=== PATIENT | male | born 1965 | race Caucasian/White ===

== ENCOUNTER 2016-10-26 14:31 | Observation (INO) | payer BC ==
[~2016-10-26] VITALS: Ht 180.3 cm; Wt 113.2 kg
--- NOTE | ~2016-10-26 | DS ---
PATIENT:ELISEO MERINO KAT :65 MEDICAL RECORD: [id number] DISCHARGE SUMMARY ADMISSION DATE: 10/26/16 DISCHARGE DATE: 10/27/16 DISCHARGE DIAGNOSES: 1. Chest pain. 2. Coronary artery disease. 3. Previous percutaneous transluminal coronary angioplasty stent. 4. Hypertension. 5. Hyperlipidemia. HISTORY: Mr. Merino presents with chest pain; however, cardiac catheterization revealed no significant new disease. He was discharged home to continue his current medications, follow up with [facility] in 1 month. TRANSINT:[id number] Voice Confirmation ID: [id number] DOCUMENT ID: [id number] LEONOR WELLS MD CC: [id number] DICTATION DATE: 10/27/16 173 GEOPHYSICAL PROSPECTOR: 10/28/16 1022 DIS IN 10/27/16 [address] [place] [address]
--- NOTE | ~2016-10-26 | OP ---
PATIENT NAME: ELISEO PENA MEDICAL RECORD: [id number] :65 LOCATION:D.M2 D.2120 ADMISSION DATE:10/26/16 SURGEON: LEONOR WELLS MD DATE OF OPERATION: 10/27/2016 PROCEDURES: 1. Left heart catheterization. 2. Selective coronary angiography. 3. Left ventriculogram. INDICATION: Angina and coronary artery disease. PROCEDURE IN DETAIL: After informed consent was obtained and after a detailed explanation of risks, benefits, as well as alternative therapies, the patient elected to proceed with angiogram and heart catheterization. The right radial area was prepped and draped in normal sterile fashion. The right radial artery was cannulated via modified Seldinger technique with placement of 5-Latvian sheath. All catheters exchanged through this sheath. FINDINGS: The left ventriculogram was performed in standard 30-degree JUAREZ view, reveals good cardiac wall motion throughout all segments. Overall ejection fraction estimated at 60%. SELECTIVE CORONARY ANGIOGRAPHY: 1. Left main showed no significant angiographic disease. 2. Left anterior descending has previously placed stents in the LAD and the LAD diagonal. These are widely patent with no significant restenosis. No disease elsewise. 3. Left circumflex has mild irregularities, but no flow-limiting stenosis. 4. Right coronary has mild irregularities, but no flow-limiting stenosis. OVERALL IMPRESSION: No significant restenosis of the previously placed stents. No disease elsewise. Continue medical management of the coronary artery disease and cardiac risk factors. TRANSINT:[id number] Voice Confirmation ID: [id number] DOCUMENT ID: [id number] LEONOR WELLS MD CC: [id number] DICTATION DATE: 10/27/161730 STONE MASON: 10/28/16 0037 DIS IN 10/27/16 [facility] [address] [place] [address]
--- NOTE | ~2016-10-26 | HEMODYNAMI ---
PATIENT:ELISEO PENA KAT MEDICAL RECORD: [id number] : 65 [facility] D[facility]2120 [id number] ADMISSION DATE: 10/26/16 Generatedon:10/27/201617:32 Patient name: ELISEO PENA Patient #: [id number] SSN: : 1965 Date of study: 10/27/2016 Page: Of Hemodynamic Procedure Report Patient Data Patient Demographics Procedure consent was obtained First Name: ELISEO Gender: Male Last Name: JEAN : 1965 [facility] Initial: KAT Age: 51 year(s) Patient #: [id number] Race: Additional ID: [id number] Contact details Address: [address] [address] State: [place] City: [place] Zip code: [address] Past Medical History Allergies Allergen Reaction Date Comments Reported Other allergy 08/30/2015 ibuprofen, Macrolide antibiotics, Zithromax Other allergy 10/27/2016 IBUPROFEN, AZITHROMYCIN, MACROBID Admission Admission Data Admission Date: 10/26/2016 Admission Time: 17:28 Room #: D.2120 Lab Results Lab Result Date: 10/27/2016 Lab Result Time: 0:00 Biochemistry Name Units Result Min Max BUN mg/dl 17 --(---*)-- 7 18 Creatinine mg/dl 1 --(--*-)-- 0.6 1.3 CBC Name Units Result Min Max Hemoglobin g/dl 14.8 --(-*--)-- 13.5 17.5 Procedure Procedure Types Cath Procedure Diagnostic Procedure LHC LHC w/Coronaries Miscellaneous Procedures Moderate Sedation up to 15 minutes Procedure Description Procedure Date Procedure Date: 10/27/2016 Procedure Start Time: 17:21 Procedure End Time: 17:31 Procedure Staff Name Function Mingo Day MD Performing Physician Annamaria Shah RT Scrub Roberto Carlos Briseno RN Nurse Aiden Akers RT Monitor Procedure Data Cath Procedure Fluoroscopy Diagnostic fluoroscopy Total fluoroscopy Time: 1.7 time: 1.7 min min Diagnostic fluoroscopy Total fluoroscopy dose: 949 dose: 949 mGy mGy Contrast Material Contrast Material Type Amount (ml) Isovue 300 68 Entry Location Entry Primary Successful Side Size Upsize Upsize Entry Closure [place] ccessful Closure Location (Fr) 1 (Fr) 2 (Fr) Remarks Device Remarks Radial Right 6 Fr Mechanical artery Short Compression Estimated blood loss: 5 ml Diagnostic catheters Device Type Used For End Catheter Placement Diagnostic Terumo 5Fr Procedure [place] 110cm catheter Procedure Medications Medication Administration Route Dosage Oxygen NC 2 l/min Heparin Flush Bag added to field 2 bags (1000units/500ml NS) 0.9% NaCl I.V. 100 ml/hr Radial Cocktail added to field 1 syringe (Verapomil 2mg/Nitro 400mcg/Heparin 1500units) Plavix P.O. 75 mg Fentanyl I.V. 50 mcg Versed I.V. 1 mg Fentanyl I.V. 50 mcg Versed I.V. 1 mg Fentanyl I.V. 50 mcg Fentanyl I.V. 50 mcg Radial Cocktail I.A. 1 syringe (Verapomil 2mg/Nitro 400mcg/Heparin 1500units) Hemodynamics Rest HGB: 14.8 (g/dl) Heart Rate: 77 (bpm) Pressure Samples Time Site Value (mmHg) Purpose Heart Use Rate(bpm) 17:24 LV 125/25,36 Snapshot 77 Snapshots Pre Cath Intra NCS Post Cath Vital Signs Time Heart Resp SPO2 NIBP (mmHg) Rhythm Pain Sedation Rate (ipm) (%) Status Level (bpm) 17:06:54 75 17 95 169/90(124) NSR 0 (11) 10(A) , No pain 17:11:10 78 16 96 161/93(121) NSR 0 (11) 10(A) , No pain 17:15:26 72 17 98 153/83(120) NSR 0 (11) 10(A) , No pain 17:19:40 67 17 95 142/88(119) NSR 0 (11) 10(A) , No pain 17:23:54 110 23 97 138/78(102) NSR 0 (11) 9(A) , No pain 17:28:06 74 17 93 158/88(119) NSR 0 (11) 9(A) , No pain 17:30:25 69 16 96 152/87(109) NSR 0 (11) 9(A) , No pain Medications Time Medication Route Dose Verified Delivered Reason Notes Effectiveness by by 17:09:14 Oxygen NC 2 l/min Roberto Carlos Azevedo Per Finn Briseno RN physician RN 17:09:22 Heparin Flush added 2 bags Roberto Carlos Azevedo used for Bag to Finn Briseno RN procedure (1000units/500ml field RN NS) 17:09:33 0.9% NaCl I.V. 100 Roberto Carlos Azevedo Per ml/hr Finn Briseno RN physician RN 17:09:42 Radial Cocktail added 1 Roberto Carlos Azevedo used for (Verapomil to syringe Finn Briseno RN procedure 2mg/Nitro field RN 400mcg/Heparin 1500units) 17:12:37 Plavix P.O. 75 mg Roberto Carlos Azevedo for Finn Briseno RN antiplatelet RN therapy 17:14:58 Fentanyl I.V. 50 mcg Roberto Carlos Azevedo for sedation Finn Briseno RN RN 17:15:04 Versed I.V. 1 mg Roberto Carlos Azevedo for sedation Finn Briseno RN RN 17:19:04 Fentanyl I.V. 50 mcg Roberto Carlos Azevedo for sedation Finn Briseno RN RN 17:19:09 Versed I.V. 1 mg Roberto Carlos Azevedo for sedation Finn Briseno RN RN 17:21:50 Fentanyl I.V. 50 mcg Roberto Carlos Azevedo for sedation Finn Briseno RN RN 17:22:55 Fentanyl I.V. 50 mcg Roberto Carlos Azevedo for sedation Finn Briseno RN RN 17:23:38 Radial Cocktail I.A. 1 Roberto Carlos Aguila for (Verapomil syringe Finn Day MD vasodilation 2mg/Nitro RN 400mcg/Heparin 1500units) Procedure Log Time Note 16:50:44 Roberto Carlos Briseno RN sent for patient. Start room use. 17:04:12 Informed consent obtained and on chart 17:04:16 Diagnostic Cath Status : Elective 17:05:00 Time tracking: Regular hours 17:05:05 Plan of Care:Hemodynamics will remain stable., Cardiac rhythm will remain stable., Comfort level will be maintained., Respiratory function will remain adequate., Patient/ family verbilizes understanding of procedure., Procedure tolerated without complication., Recovers from procedure without complications.. 17:05:13 Patient received from PCU to [facility] Alert and oriented. Tansferred to table in Supine position. 17:05:15 Warm blankets applied, and nilton hugger turned on for patient comfort. 17:05:15 Correct patient and procedure confirmed by team. 17:05:16 ECG and BP/O2 sat monitors applied to patient. 17:05:17 Vital chart was started 17:05:18 Baseline sample Acquired. 17:05:23 Rhythm: sinus rhythm 17:05:25 Full Disclosure recording started 17:08:43 H&P Date Dictated: 10/26/2016 Within 30 days and on chart., ER History on chart.. 17:09:03 Pre-procedure instructions explained to patient. 17:09:04 Pre-op teaching completed and patient verbalized understanding. 17:09:07 Family in patients room. 17:09:14 Oxygen 2 l/min NC was administered by Roberto Carlos Briseno RN; Per physician; 17:09:14 Patient NPO since Breakfast. 17:09:22 Heparin Flush Bag (1000units/500ml NS) 2 bags added to field was administered by Roberto Carlos Briseno RN; used for procedure; 17:09:33 0.9% NaCl 100 ml/hr I.V. was administered by Roberto Carlos Briseno RN; Per physician; 17:09:42 Radial Cocktail (Verapomil 2mg/Nitro 400mcg/Heparin 1500units) 1 syringe added to field was administered by Roberto Carlos Briseno RN; used for procedure; 17:09:49 Patient allergic to Other allergyIBUPROFEN, AZITHROMYCIN, MACROBID 17:09:57 Is the patient allergic to Iodine/contrast media? No. 17:10:08 Is patient on blood thinner?Yes 17:10:20 Patient diabetic? No. 17:10:23 ----Pre-sedation anethsthesia assessment.---- 17:10:33 Previous problem with sedation/anesthesia? No ? 17:10:35 Snore? Yes 17:10:37 Sleep apnea? Yes 17:10:39 Deviated septum? No 17:10:41 Opens mouth fully? Yes 17:10:42 Sticks out tongue? Yes 17:10:46 Airway obstruction? No ? 17:10:50 Dentures? No ? 17:10:53 Pre procedure: right dorsailis pedis pulse 1+ Palpable, but thready & weak; easily obliterated 17:10:58 Patient pain scale 0/10 ?. 17:11:06 IV patent on arrival in right hand with 0.9% NaCl at KVO. 17:11:19 IV right hand D/C'd due to need to relocate for procedure.. 17:11:35 IV started by Roberto Carlos Briseno RN inleft forearm with a 20 gauge IV catheter with 0.9% NaCl at KVO. 17:12:37 Plavix 75 mg P.O. was administered by Roberto Carlos Briseno RN; for antiplatelet therapy; 17:12:57 Lab Result : BUN 17 mg/dl 17:12:57 Lab Result : Hemoglobin 14.8 g/dl 17:12:57 Lab Result : Creatinine 1 mg/dl 17:13:01 Lab results completed and on chart. 17:13:09 Right Radial & Right Groin area was prepped with chlora-prep and draped in sterile fashion 17:13:11 Alarms reviewed by R. N. 17:13:12 Sharps counted by scrub and verified by R.N. 17:13:18 Use device set Radial Dx 17:13:19 Acist Syringe opened to sterile field. 17:13:20 Medline Cath Pack opened to sterile field. 17:13:20 Bag Decanter opened to sterile field. 17:13:21 Terumo 6Fr Slender Glidesheath opened to sterile field. 17:13:21 St Jerod 260cm J .035 wire opened to sterile field. 17:13:22 Acist Hand Control opened to sterile field. 17:13:22 Acist Manifold opened to sterile field. 17:13:23 Tegaderm 4 x 4 opened to sterile field. 17:13:23 MBrace Wrist Support opened to sterile field. 17:14:33 Physician arrived 17:14:34 --------ALL STOP TIME OUT------ 17:14:35 Final Timeout: patient, procedure, and site verified with staff and physician. All members of the team are in agreement. 17:14:38 Right Radial & Right Groin site verified by team. 17:14:41 Physical assessment completed. ASA score P 2 - A patient with mild systemic disease as per Mingo Day MD. 17:14:46 Sedation plan: IV Moderate Sedation Versed, Fentanyl 17:14:58 Fentanyl 50 mcg I.V. was administered by Roberto Carlos Briseno RN; for sedation; 17:15:04 Versed 1 mg I.V. was administered by Roberto Carlos Briseno RN; for sedation; 17:19:04 Fentanyl 50 mcg I.V. was administered by Roberto Carlos Briseno RN; for sedation; 17:19:09 Versed 1 mg I.V. was administered by Roberto Carlos Briseno RN; for sedation; 17:19:09 Zero performed for pressure channel P1 17:21:10 Procedure started. 17:21:15 Local anesthetic to right radial artery with Lidocaine 2% by Mingo Day MD.INITIAL ACCESS ONLY 17:21:50 Fentanyl 50 mcg I.V. was administered by Roberto Carlos Briseno RN; for sedation; 17:22:05 A 6 Fr Short sheath was inserted into the Right Radial artery 17:22:55 Fentanyl 50 mcg I.V. was administered by Roberto Carlos Briseno RN; for sedation; 17:23:05 A Diagnostic Terumo 5Fr [place] 110cm catheter was advanced over the wire and used for Procedure. 17:23:38 Radial Cocktail (Verapomil 2mg/Nitro 400mcg/Heparin 1500units) 1 syringe I.A. was administered by Mingo Day MD; for vasodilation; 17:24:10 LV hemodynamics recorded. 17:24:11 LV gram done using JUAREZ 17:24:16 EF : 60 % 17:24:49 RCA angiography performed. 17:25:34 LCA angiography performed. 17:27:34 Catheter removed. 17:27:47 Terumo TR Band Large opened to sterile field. 17:28:01 Sheath removed intact; hemostasis achieved with Mechanical Compression to the Right Radial artery. 17:28:05 Procedure ended.(Physican Out) 17:28:32 Procedure type changed to Cath procedure, Diagnostic procedure, LHC, LHC w/Coronaries, Miscellaneous Procedures, Moderate Sedation up to 15 minutes 17:29:19 Fluoroscopy time 01.70 minutes. 17:29:26 Fluoroscopy dose: 949 mGy 17:: Flurop Dose total: 949 17:29:32 Contrast amount:Isovue 300 68ml. 17:30:53 TR band inflated with 10cc of air. 17:30:55 Insertion/operative site no bleeding no hematoma. 17:31:00 Post right radial artery:stable 17:31:05 Post-procedure physical assessment completed. ASA score P 2 - A patient with mild systemic disease as per Mingo Day MD. 17:31:10 Post procedure rhythm: sinus rhythm 17:31:12 Estimated blood loss: 5 ml 17:31:14 Post procedure instruction explained to patient.Patient verbalizes understanding. 17:31:14 Patient needs reinforcement of post procedure teaching. 17:31:15 Procedure and supply charges have been captured, reviewed, submitted and are correct. 17:31:16 Vital chart was stopped 17:31:17 See physician's report for complete and final results. 17:31:19 Report given to [facility]. 17:31:24 Patient transfered to [facility] with Bed. 17:31:42 Procedure ended. 17:31:42 Full Disclosure recording stopped 17:31:47 End room use (Document Last) Device Usage Item Name Manufacture Quantity Catalog Hospital Part Current Minimal Lot# / Number Charge Number Stock Stock Serial# Code Acist Acist 1 73562 716953 775525 165151 20 Syringe [employer] Inc Medline Cardinal 1 [id number] 468681 32066 777645 5 Cath Pack Health Bag Microtek 1 2001S 903083 21984 741314 5 Decanter [employer] Inc. Terumo 6Fr Terumo 1 [id number] 495407 540482 043952 [address] St Jerod 1 [id number] 743420 478529 902995 30 260cm J .035 wire Acist Hand Acist 1 54346 943196 955271 368257 5 Control Medical Systems Inc Acist Acist 1 34982 762851 630530 935514 5 Manifold Medical [employer] Inc Tegaderm 4 3M 1 1626W 853798 379878 106942 5 x 4 MBrace Advanced 1 140-0250-00 182539 99135 578993 5 Wrist Vascular Support Dynamics Diagnostic Terumo 1 13-5350 931737 563113 742662 5 Terumo 5Fr [place] 110cm catheter Terumo TR Terumo 1 [id number] 944256 087536 621330 40 Band Large Signature Audit [place] Stage Time Signature Unsigned Intra-Procedure 10/27/2016 Aiden Akers 5:32:04 PM RT(R) (CV) Signatures Monitor : Aiden Akers RT Signature : Date : Time : [facility] [address] [place] [address]
[~2016-10-26 14:31] MED LIST: BAYER CHEWABLE81 MG PO; HYZAAR 100-12.51 TAB PO; METOPROLOL TART50 MG PO; PLAVIX75 MG PO
[2016-10-26 15:12] LABS: BASOPHILS 0.4 % (0-2); EOSINOPHILS 2.5 % (0-7); HEMATOCRIT 42.8 % (42.0-54.0); HEMOGLOBIN 14.8 g/dL (13.5-17.5); IMMATURE GRANULOCYTES 0.1 % (0-5); LYMPHOCYTES 33.9 % (15-50); MCH 31.2 pg (26.0-34.0); MCHC 34.6 g/dL (31.0-37.0); MCV 90.1 fL (80.0-100.0); MEAN PLATELET VOLUME 10.1 fL (7.4-10.4); NEUTROPHILS 55.1 % (40-80); PLATELET COUNT 209 10x3/uL (130-400); RBC 4.75 10x6/uL (4.20-6.10); RDW 12.8 % (11.5-14.5); WBC 6.7 10x3/uL (4.8-10.8)
[2016-10-26 15:30] LABS: ALBUMIN 3.9 g/dL (3.4-5.0); ALKALINE PHOSPHATASE 81 U/L (46-116); ALT (SGPT) 65 U/L (10-68); BILIRUBIN - TOTAL 0.29 mg/dL (0.2-1.3); CALC OSMOLALITY 282 mosm/kg (275-300); CALCIUM 9.3 mg/dL (8.5-10.1); CARBON DIOXIDE 30.4 mmol/L (21.0-32.0); CHLORIDE - SERUM 102 mmol/L (98-107); GLUCOSE 146 mg/dL (74-106); POTASSIUM - SERUM 3.9 mmol/L (3.5-5.1); SODIUM 139 mmol/L (136-145); UREA NITROGEN 17 mg/dL (7-18); eGFR NON AFRICAN AMERICAN 84 mL/min (90-120)
[2016-10-26 15:42] LABS: CHOL - HDL RATIO 5.3 ratio (2.3-4.9); CHOLESTEROL, TOTAL 196 mg/dL (0-200); CKMB 0.3 U/L (0.0-3.6); CREATINE KINASE 107 UL (21-232); HDL CHOLESTEROL 37 mg/dL (32-96); LDL CHOLESTEROL 130 mg/dL (0-100); LDL-HDL RATIO 3.5 ratio (1.5-3.5); TRIGLYCERIDE 146 mg/dL (30-200); TROPONIN-I 0.026 ng/mL (0.000-0.060)
[2016-10-26 18:56] LABS: APPEARANCE CLEAR (CLEAR); COLOR YELLOW (YELLOW); SPECIFIC GRAVITY 1.025 (1.005-1.020)
[2016-10-26 18:57] LABS: BILIRUBIN NEGATIVE (NEGATIVE); GLUCOSE NEGATIVE (NEGATIVE); KETONE NEGATIVE (NEGATIVE); LEUKOCYTE ESTERASE NEGATIVE (NEGATIVE); NITRITE NEGATIVE (NEGATIVE); PROTEIN NEGATIVE (NEGATIVE); UROBILINOGEN NORMAL (NORMAL)
[2016-10-26] MEDS ORDERED: PRAVASTATIN SOD10 MG PO (19:36)
[2016-10-26] MEDS ORDERED: REQUIP0.5 MG PO (19:36)
--- NOTE | 2016-10-26 19:45 | NUR ---
PT ARRIVES TO UNIT VIA WC. DENIES ANY C/O PAIN UPON ARRIVAL. PT REQUEST TO TAKE SHOWER BEFORE WEARING TELE OR CONTINUING WITH ASSESSMENT. IV TO RIGHT HAND COVERED AND PT ASSISTED TO SHOWER.
[2016-10-26 20:00] VITALS: BP 144/61
--- NOTE | 2016-10-26 20:15 | NUR ---
PT OUT OF SHOWER AND TELE PLACED ON. NSR ON MONITOR. RESP EVEN AND UNLABORED. CONT TO DENY ANY C/O PAIN. VSS, AFEBRILE. RIGHT HAND IV FLUSHED AND NS STARTED @ 100 CC/HR, SITE APPEARS WNL. NO NEEDS VOICED. WILL CONT TO MONITOR.
--- NOTE | 2016-10-26 22:00 | NUR ---
RESTING COMFORTABLY WITHOUT C/O OR DISTRESS NOTED. NO NEEDS VOICED. WILL MONITOR.
[2016-10-26 22:39] VITALS: Ht 180.3 cm; Wt 113.2 kg
[2016-10-27] VITALS: BP 144/71
[2016-10-27 05:24] VITALS: BP 145/65
[2016-10-27 08:00] VITALS: BP 154/82
[2016-10-27 08:32] LABS: BASOPHILS 0.3 % (0-2); EOSINOPHILS 3.1 % (0-7); HEMATOCRIT 42.2 % (42.0-54.0); HEMOGLOBIN 14.1 g/dL (13.5-17.5); IMMATURE GRANULOCYTES 0.3 % (0-5); MCH 30.7 pg (26.0-34.0); MCHC 33.4 g/dL (31.0-37.0); MCV 91.9 fL (80.0-100.0); MEAN PLATELET VOLUME 10.7 fL (7.4-10.4); MONOCYTES 8.1 % (2-11); NEUTROPHILS 43.2 % (40-80); PLATELET COUNT 209 10x3/uL (130-400); RBC 4.59 10x6/uL (4.20-6.10); RDW 13.1 % (11.5-14.5); WBC 7.1 10x3/uL (4.8-10.8)
[2016-10-27 08:38] LABS: CALC OSMOLALITY 280 mosm/kg (275-300); CALCIUM 8.4 mg/dL (8.5-10.1); CHLORIDE - SERUM 102 mmol/L (98-107); GLUCOSE 121 mg/dL (74-106); POTASSIUM - SERUM 3.8 mmol/L (3.5-5.1); SODIUM 139 mmol/L (136-145); UREA NITROGEN 18 mg/dL (7-18); eGFR NON AFRICAN AMERICAN 84 mL/min (90-120)
--- NOTE | 2016-10-27 09:56 | NUR ---
TELEMETRY SR. CONSENTS SIGNED FOR [facility]. WILL CONT. PLAN OF CARE.
[2016-10-27 11:52] VITALS: BP 152/74
[2016-10-27 14:44] VITALS: BP 111/63
--- NOTE | 2016-10-27 16:51 | NUR ---
LEAVING FOR LIGHT FIXTURE SERVICER BY Yash/Kirsten
--- NOTE | 2016-10-27 17:46 | NUR ---
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 VS WNL. RIGHT WRIST STABLE WITHOUT BLEEDING OR HEMATOMA NOTED. WILL MONITOR.
--- NOTE | 2016-10-27 19:13 | NUR ---
INITIAL ROUNDS COMPLETRED. PT DENIES ANY DISCOMFORT. 1/2 OF AIR REMOVED FORM TR BAND WITH BLEEDING NOTED. AIR REPLACED TO TR BAND. WILL RECHECK IN 30 MINUTES. WILL CONTINUE TO MONITOR.
--- NOTE | 2016-10-27 20:19 | NUR ---
7CC REMOVED AT 1940 HRS. NO BLEEDING NOTED. ASSESSMENT COMPLETED AT THAT TIM. IV TO R HAND SL. LUNGS CTA. REMAINDER OF AIR REMOVED FROM TR BAND AT 2020 HRS. NO BLEEDING NOTED. AT BEDSIDE.
[2016-10-27 20:25] VITALS: BP 144/69
--- NOTE | 2016-10-27 21:06 | NUR ---
NO BLEEDING X 30 MINUTES POST TR-BAND REMOVAL. PALPABLE R RADILA PULSE. R HAND NAILBEDS PINK WITH BRISK CAP REFILL. IV TO R HAND AND LFA DC'D WITH CATHETER INTACT. DC INSTRUCTIONS GIVEN AND EXPLAINED TO PT. INFORMED TO CALL AO GO TO ER TUAN FOR ANY BLEDING THAT DOES NOT STOP AFTER 5 MINUTES OF PRESSURE HELD, SWELLING OR IF R HAND BECOMES COLD OR NUMB. PT AND RETURN UNFERSTANDING. TO POV VIA W/C.
== END 2016-10-27 21:00 | disposition home or self-care (01) ==
LOC: D.ER 14:31 → D.M2 17:28 → OBSVTIME 17:28 → D.M2 17:28
PROVIDERS: Emergency Medicine; ADMIT Internal Medicine Interventional Cardiology
DX: R07.9 Chest pain, unspecified (principal); I25.10 Atherosclerotic heart disease of native coronary artery without angina pectoris; Z95.5 Presence of coronary angioplasty implant and graft; I10 Essential (primary) hypertension; E78.5 Hyperlipidemia, unspecified

== ENCOUNTER → 2017-11-14 08:53 | Outpatient (CLI) | payer BC ==
[~2017-11-14] VITALS: Ht 180.3 cm; Wt 115.9 kg
--- NOTE | ~2017-11-14 | HEMODYNAMI ---
PATIENT:ELISEO PENA KAT MEDICAL RECORD: [id number] : 65 LOCATION:[facility] ADMISSION DATE: 11/14/17 Generatedon:11/14/201712:29 Patient name: ELISEO PENA Patient #: [id number] SSN: : 1965 Date of study: 11/14/2017 Page: Of Hemodynamic Procedure Report Patient Data Patient Demographics Procedure consent was obtained First Name: ELISEO Gender: Male Last Name: JEAN : 1965 [facility] Initial: KAT Age: 52 year(s) Patient #: [id number] Race: Additional ID: [id number] Contact details Address: [address] [address] State: [place] City: [place] Zip code: [address] Past Medical History Allergies Allergen Reaction Date Comments Reported Other allergy 08/30/2015 ibuprofen, Macrolide antibiotics, Zithromax Other allergy 10/27/2016 IBUPROFEN, AZITHROMYCIN, MACROBID Admission Admission Data Admission Date: 11/14/2017 Admission Time: 8:53 Procedure Procedure Types Cath Procedure Diagnostic Procedure [facility] w/Coronaries PCI Procedure Coronary Stent Coronary Stent Initial Procedure Description Procedure Date Procedure Date: 11/14/2017 Procedure Start Time: 12:06 Procedure End Time: 12:23 Procedure Staff Name Function Mingo Day MD Performing Physician Annamaria Shah RT Monitor Christy Gonzales RN Nurse Juan Parker RT Scrub Procedure Data Cath Procedure Fluoroscopy Diagnostic fluoroscopy Total fluoroscopy Time: 6.2 time: 6.2 min min Diagnostic fluoroscopy Total fluoroscopy dose: dose: 1438 mGy 1438 mGy Contrast Material Contrast Material Type Amount (ml) Isovue 300 104 Entry Location Entry Primary Successful Side Size Upsize Upsize Entry Closure [place] ccessful Closure Location (Fr) 1 (Fr) 2 (Fr) Remarks Device Remarks Radial Right 6 Fr Mechanical artery Short Compression Estimated blood loss: 10 ml Diagnostic catheters Device Type Used For End Catheter Placement DIAGNOSTIC Bushnell 110cm 5 Procedure Fr catheter ([id number]) Procedure Complications No complications Procedure Medications Medication Administration Route Dosage Oxygen NC 2 l/min Lidocaine 2% added to field 20 Heparin Flush Bag added to field 2 bags (1000units/500ml NS) 0.9% NaCl I.V. 100 ml/hr Radial Cocktail I.A. 1 syringe (Verapomil 2mg/Nitro 400mcg/Heparin 1500units) Versed I.V. 1 mg Fentanyl I.V. 50 mcg Versed I.V. 1 mg Fentanyl I.V. 50 mcg Heparin Bolus I.V. 4000 units Versed I.V. 0.5 mg Fentanyl I.V. 25 mcg Hemodynamics Rest Heart Rate: 68 (bpm) Pressure Samples Time Site Value (mmHg) Purpose Heart Use Rate(bpm) 12:09 LV 60/-23,13 Snapshot 77 12:09 LV 99/-48,-41 Snapshot 70 Snapshots Pre Cath Intra NCS Post Cath Vital Signs Time Heart Resp SPO2 NIBP (mmHg) Rhythm Pain Sedation Rate (ipm) (%) Status Level (bpm) 11:49:07 64 12 97 140/79(95) NSR 0 (11) 10(A) , No pain 11:53:21 64 19 95 125/74(97) NSR 0 (11) 10(A) , No pain 11:58:34 58 23 96 120/59(90) NSR 0 (11) 10(A) , No pain 12:03:21 61 15 94 120/97(115) NSR 0 (11) 10(A) , No pain 12:07:27 58 16 94 131/86(113) NSR 0 (11) 10(A) , No pain 12:11:29 65 17 95 106/93(103) NSR 0 (11) 10(A) , No pain 12:15:36 62 52 93 108/69(102) NSR 0 (11) 10(A) , No pain 12:20:38 69 13 94 145/70(117) NSR 0 (11) 10(A) , No pain Medications Time Medication Route Dose Verified Delivered Reason Note s Effectiveness by by 11:47:34 Oxygen NC 2 l/min Mingo Harrison used for Barb Gonzales RN procedure 11:47:41 Lidocaine 2% added 20ml Mingo Marieie used for to vial Barb Gonzales RN procedure field 11:47:48 Heparin Flush added 2 bags Mingo Harrison used for Bag to Barb Gonzales RN procedure (1000units/500ml field NS) 11:48:02 0.9% NaCl I.V. 100 Mingotrisha Marieie Per physician ml/hr Barb Gonzales RN 12:05:41 Versed I.V. 1 mg Mingo Marieie for sedation Barb Gonzales RN 12:05:47 Fentanyl I.V. 50 mcg Mingo Harrison for sedation Barb Gonzales RN 12:09:29 Radial Cocktail I.A. 1 Mingo Aguila for (Verapomil syringe Barb Day MD vasodilation 2mg/Nitro 400mcg/Heparin 1500units) 12:09:34 Versed I.V. 1 mg Mingo Marieie for sedation Barb Gonzales RN 12:09:41 Fentanyl I.V. 50 mcg Mingo Harrison for sedation Barb Gonzales RN 12:14:12 Heparin Bolus I.V. 4000 Mingo Harrison for veri fied units Barb Gonzales RN anticoagulation with dr day 12:16:34 Versed I.V. 0.5 mg Mingo Marieie for sedation Barb Gonzales RN 12:16:39 Fentanyl I.V. 25 mcg Mingo Harrison for sedation Barb Gonzales RN Procedure Log Time Note 11:30:23 Juan Parker RT(R) sent for patient. Start room use. 11:39:07 Diagnostic Cath Status : Elective 11:40:40 Time tracking: Regular hours (M-F 7:00 - 5:00) 11:40:45 Plan of Care:Hemodynamics will remain stable., Cardiac rhythm will remain stable., Comfort level will be maintained., Respiratory function will remain adequate., Patient/ family verbilizes understanding of procedure., Procedure tolerated without complication., Recovers from procedure without complications.. 11:40:54 Patient received from Pre/Post Procedure Room to CCL 2 Alert and oriented. Tansferred to table in Supine position. 11:40:57 Warm blankets applied, and nilton hugger turned on for patient comfort. 11:41:09 Correct patient and procedure confirmed by team. 11:41:14 Signed procedure consent form obtained from patient. 11:47:34 Oxygen 2 l/min NC was administered by Christy Gonzales RN; used for procedure; 11:47:41 Lidocaine 2% 20ml vial added to field was administered by Christy Gonzales RN; used for procedure; 11:47:48 Heparin Flush Bag (1000units/500ml NS) 2 bags added to field was administered by Christy Gonzales RN; used for procedure; 11:48:02 0.9% NaCl 100 ml/hr I.V. was administered by Christy Gonzales RN; Per physician; 11:48:06 Vital chart was started 11:50:04 ECG and BP/O2 sat monitors applied to patient. 11:50:06 Baseline sample Acquired. 11:50:11 Rhythm: sinus rhythm 11:50:12 Full Disclosure recording started 11:50:23 H&P Date Dictated: 11/08/2017 Within 30 days and on chart., H&P Addendum completed by physician on day of procedure. (MUST COMPLETE FOR ALL OUTPATIENTS). 11:50:25 Pre-procedure instructions explained to patient. 11:50:26 Family in waiting room. 11:50:29 Patient NPO since Midnight. 11:50:37 Is the patient allergic to Iodine/contrast media? No. 11:50:39 Was the patient premedicated? Yes 11:50:40 Is patient on blood thinner?Yes 11:50:44 ACC The patient was administered the following blood thiners within the last 24 hours: ACCAspirin, ACCPlavix 11:50:46 Patient diabetic? No. 11:50:50 Snore? Yes 11:50:51 Sleep apnea? Yes 11:50:52 Deviated septum? No 11:50:59 Patient pain scale 0/10 ?. 11:51:07 IV patent on arrival in left forearm with 0.9% NaCl at O. 11:51:11 Lab results completed and on chart. 11:51:15 Right Radial & Right Groin area was prepped with chlora-prep and draped in sterile fashion 11:51:16 Alarms reviewed by R. N. 11:51:16 Sharps counted by scrub and verified by R.N. 11:51:17 Physician paged 12:04:23 Use device set Radial Dx or PCI 12:04:24 ACIST Syringe (22089) opened to sterile field. 12:04:25 Medline Cath Pack ([id number]) opened to sterile field. 12:04:25 Bag Decanter () opened to sterile field. 12:04:26 DIAGNOSTIC WIRE .035 260cm J wire (044731) opened to sterile field. 12:04:26 ACIST Hand Control (78917) opened to sterile field. 12:04:27 ACIST Manifold (57258) opened to sterile field. 12:04:27 Tegaderm 4 x 4 (1626W) opened to sterile field. 12:04:29 MBrace Wrist Support ([id number]) opened to sterile field. 12:04:30 NEEDLE Cook 21G 4cm Radial (Q88699) opened to sterile field. 12:04:35 SHEATH 6Fr Prelude Radial ([id number]) opened to sterile field. 12:05:16 Physician arrived 12:05:17 --------ALL STOP TIME OUT------ 12:05:17 Final Timeout: patient, procedure, and site verified with staff and physician. All members of the team are in agreement. 12:05:19 Right Radial & Right Groin site verified by team. 12:05:24 Physical assessment completed. ASA score P 2 - A patient with mild systemic disease as per Mingo Day MD. 12:05:28 Sedation plan: IV Moderate Sedation Medication:Versed, Fentanyl 12:05:41 Versed 1 mg I.V. was administered by Christy Gonzales RN; for sedation; 12:05:47 Fentanyl 50 mcg I.V. was administered by Christy Gonzales RN; for sedation; 12:06:46 Procedure started. 12:06:57 Local anesthetic to right radial artery with Lidocaine 2% by Mingo Day MD.INITIAL ACCESS ONLY 12:07:08 A 6 Fr Short sheath was inserted into the Right Radial artery 12:07:21 Zero performed for pressure channel P1 12:08:00 A DIAGNOSTIC Bushnell 110cm 5 Fr catheter (403078) was advanced over the wire and used for Procedure. 12:08:24 LV angiography performed. 12:09:08 LV gram done using JUAREZ 12:09:29 Radial Cocktail (Verapomil 2mg/Nitro 400mcg/Heparin 1500units) 1 syringe I.A. was administered by Mingo Day MD; for vasodilation; 12:09:34 Versed 1 mg I.V. was administered by Buffie Gonzales RN; for sedation; 12:09:41 Fentanyl 50 mcg I.V. was administered by Christy Gonzales RN; for sedation; 12:10:13 EF : 60 % 12:10:44 RCA angiography performed. 12:12:12 LCA angiography performed. 12:14:02 CHOICE PT Extra Support 182cm wire ([id number]) opened to sterile field. 12:14:02 INFLATOR Merit BasixCompak (LJ6634) opened to sterile field. 12:14:03 GUIDE 6FR XBLAD 3.5 catheter ([id number]) opened to sterile field. 12:14:08 Catheter removed. 12:14:09 Proceeding to intervention. 12:14:12 Heparin Bolus 4000 units I.V. was administered by Christy Gonzales RN; for anticoagulation; verified with dr day 12:14:25 6 Fr XBLAD 3.5 guide catheter was inserted over the wire 12:14:36 choice ex support wire advanced. 12:15:45 Guide catheter removed. 12:16:05 GUIDE 6FR XBLAD 4.0 catheter ([id number]) opened to sterile field. 12:16:34 Versed 0.5 mg I.V. was administered by Christy Gonzales RN; for sedation; 12:16:38 6 Fr XBLAD 4 guide catheter was inserted over the wire 12:16:39 Fentanyl 25 mcg I.V. was administered by Christy Gonzales RN; for sedation; 12:17:58 Choice pt ex wire advanced. 12:20:29 Place stent Inflation Number: 1 A INTEGRITY RX 3.5 x 12 stent ([id number]) was prepped and advanced across the Mid CX. The stent was deployed at 13 [place] for 0:06 (min:sec). 12:21:23 Sheath removed intact; hemostasis achieved with Mechanical Compression to the Right Radial artery. 12:21:30 Procedure ended.(Physican Out) 12:22:04 Fluoroscopy time 06.20 minutes. 12::08 Fluoroscopy dose: 1438 mGy 12:22:08 Flurop Dose total: 1438 12:22:11 Contrast amount:Isovue 300 104ml. 12:22:13 Sharps counted by scrub and verified by R.N. 12:22:16 TR band inflated with 10cc of air. 12:22:17 Insertion/operative site no bleeding no hematoma. 12:22:22 Post Procedure Pulses reassessed and unchanged 12:22:26 Post-procedure physical assessment completed. ASA score P 2 - A patient with mild systemic disease as per Mingo Day MD. 12:22:32 Post procedure rhythm: unchanged. 12:22:35 Estimated blood loss: 10 ml 12:22:37 Post procedure instruction explained to patient.Patient verbalizes understanding. 12:23:08 Procedure type changed to Cath procedure, Diagnostic procedure, LHC, LHC w/Coronaries, PCI procedure, Coronary Stent, Coronary Stent Initial 12:23:10 Procedure and supply charges have been captured, reviewed, submitted and are correct. 12:23:33 Procedure Complication : No complications 12:23:36 Vital chart was stopped 12:23:37 See physician's report for complete and final results. 12:23:39 Report given to Pre/Post Procedure Room. 12:23:43 Patient transfered to Pre/Post Procedure Room with Stretcher. 12:23:45 Procedure ended. 12:23:45 Full Disclosure recording stopped 12:23:49 End room use (Document Last) Intervention Summary Intervention Notes Time ActionType Lesion and Equipment Action# Pressure Duration Attributes Used 12:20:29 Place stent Mid CX INTEGRITY RX 1 13 00:06 3.5 x 12 stent ([id number]) Device Usage Item Name Manufacture Quantity Catalog Number Hospital Part Current M inimal Lot# / Charge Number Stock Stock Serial# Code ACIST Syringe Acist 1 36349 245162 048731 110886 2 0 (55259) Medical Systems Inc Medline Cath Cardinal 1 [id number] 747886 59104 187379 5 Pack Health ([id number]) Bag Decanter Microtek 1 065885 63529 246914 5 () Medical Inc. DIAGNOSTIC WIRE St Jerod 1 003194 869189 654023 336784 3 0 .035 260cm J wire (572101) ACIST Hand Acist 1 43716 677462 723495 666859 5 Control (89714) Medical Systems Inc ACIST Manifold Acist 1 54846 474810 043468 500794 5 (03235) Medical Systems Inc Tegaderm 4 x 4 3M 1 1626W 273657 071001 265011 5 (1626W) MBrace Wrist Advanced 1 140-0250-00 206947 37410 661015 5 Support Vascular ([id number]) Dynamics NEEDLE Cook 21G Cook Medical 1 O15219 962888 138026 499129 5 4cm Radial (W82352) SHEATH 6Fr Merit 1 [id number] 777856 678434 228127 5 Prelude Radial Medical ([id number]) DIAGNOSTIC Terumo 1 40-1120 910158 374553 823090 5 Bushnell 110cm 5 Fr catheter (758702) CHOICE PT Extra Mayfield 1 [id number] 106305 173819 431756 5 Support 182cm Scientific wire ([id number]) INFLATOR Merit Merit 1 FD1629 752051 367301 100966 1 5 Fangdd (SX0667) GUIDE 6FR XBLAD Cardinal 1 20041089 960668 407957 262675 1 0 3.5 catheter Health (20531780) GUIDE 6FR XBLAD Cardinal 1 [id number] 441197 470191 429338 3 4.0 catheter Health (87235433) INTEGRITY RX Medtronic 1 [id number] 232639 008491 228771 5 [id number] 3.5 x 12 stent ([id number]) Signature Audit [place] Stage Time Signature Unsigned Intra-Procedure 11/14/2017 Annamaria Shah 12:29:12 PM RT(R) Signatures Monitor : Annamaria Shah Signature : RT Date : Time : [id number] [place] [address]
--- NOTE | ~2017-11-14 | OP ---
PATIENT NAME: ELISEO PENA MEDICAL RECORD: [id number] :65 LOCATION:D.CAT ADMISSION DATE: SURGEON: LEONOR WELLS MD DATE OF OPERATION: 11/14/2017 PROCEDURES: 1. PTCA stent left circumflex. 2. Left heart catheterization. 3. Selective coronary angiography. 4. Left ventriculogram. INDICATION: Chest pain compatible with angina. PROCEDURE IN DETAIL: After informed consent was obtained and after a detailed description of risks, benefits as well as alternative therapies, the patient elected to proceed with angiogram and angioplasty. The right radial area was prepped and draped in normal sterile fashion. Right radial artery was cannulated via modified Seldinger technique with placement of 6-Malaysian sheath. All catheters exchanged through this sheath. FINDINGS: The left ventriculogram was performed in standard 30-degree JUAREZ view, reveals good cardiac wall motion throughout all segments. Overall ejection fraction estimated 60%. SELECTIVE CORONARY ANGIOGRAPHY: 1. Left main is with no significant angiographic disease. 2. Left anterior descending has previously placed stents, these are widely patent with no significant restenosis. No disease elsewise at the LAD or its branches. 3. The left circumflex has 80% stenosis proximally. 4. Right coronary has moderate irregularities, but no flow-limiting stenosis. Previously placed stents are widely patent. PTCA STENT OF THE LEFT CIRCUMFLEX: The stent used was a 3.5 x 12 mm Integrity. Result was 0% residual stenosis. OVERALL IMPRESSION: Successful percutaneous transluminal coronary angioplasty stent of the left circumflex going from 80% initial stenosis to 0% residual. TRANSINT:[id number] Voice Confirmation ID: [id number] DOCUMENT ID: [id number] LEONOR WELLS MD at 1728 CC: [id number] DICTATION DATE: 11/14/17 1226 PRINT MANAGER: 11/14/17 1244 [address] [place] [address]
[~2017-11-14 08:53] MED LIST changes: +ISOSORBIDE MONO30 M1 PO; +PRAVASTATIN SOD10 MG PO; +REQUIP0.5 MG PO
[2017-11-14 09:48] VITALS: BP 143/79; Ht 180.3 cm; Wt 115.9 kg
[2017-11-14 09:53] LABS: BASOPHILS 0.3 % (0-2); EOSINOPHILS 3.8 % (0-7); HEMATOCRIT 43.3 % (42.0-54.0); IMMATURE GRANULOCYTES 0.2 % (0-5); LYMPHOCYTES 42.5 % (15-50); MCH 31.1 pg (26.0-34.0); MCHC 34.6 g/dL (31.0-37.0); MCV 89.8 fL (80.0-100.0); MEAN PLATELET VOLUME 9.8 fL (7.4-10.4); MONOCYTES 7.8 % (2-11); NEUTROPHILS 45.4 % (40-80); PLATELET COUNT 205 10x3/uL (130-400); RBC 4.82 10x6/uL (4.20-6.10); WBC 6.3 10x3/uL (4.8-10.8)
[2017-11-14 10:00] LABS: CALC OSMOLALITY 279 mosm/kg (275-300); CALCIUM 8.7 mg/dL (8.5-10.1); CARBON DIOXIDE 26.8 mmol/L (21.0-32.0); CHLORIDE - SERUM 102 mmol/L (98-107); GLUCOSE 127 mg/dL (74-106); POTASSIUM - SERUM 4.2 mmol/L (3.5-5.1); SODIUM 138 mmol/L (136-145); UREA NITROGEN 19 mg/dL (7-18); eGFR NON AFRICAN AMERICAN 83 mL/min (90-120)
== END | disposition home or self-care (01) ==
LOC: D.CATH 08:53
PROVIDERS: Internal Medicine Interventional Cardiology
DX: I25.119 Atherosclerotic heart disease of native coronary artery with unspecified angina pectoris (principal); Z01.812 Encounter for preprocedural laboratory examination

== ENCOUNTER → 2018-10-10 08:57 | Outpatient (CLI) | payer BC ==
[2017-11-14 09:48] VITALS: BMI 35.6
--- NOTE | 2018-10-22 09:52 | ST ---
PATIENT:ELISEO PENA MEDICAL RECORD: [id number] SEX: M LOCATION:[facility] ORDER #: ADMISSION DATE: 10/10/18 AGE OF PATIENT: 53 REFERRING PHYSICIAN: INTERPRETING PHYSICIAN: LEONOR WELLS MD DATE OF SERVICE: 10/10/2018 INDICATION: Angina, coronary artery disease, shortness of breath, hypertension. He was exercised on standard Lexiscan protocol with 32 mCi of sestamibi injected at peak stress, 10 mCi used previously for rest images. SPECT IMAGING: Cardiolite was used for a myocardial perfusion agent. There is homogeneous uptake throughout all segments at rest and stress with no evidence of inducible ischemia or previous infarction. OVERALL IMPRESSION: This is a normal rest-stress Cardiolite with no evidence of inducible ischemia or previous infarction. A gated SPECT reveals preserved ejection fraction greater than 59%. At this time I would evaluate noncardiac etiology of chest pain. TRANSINT:[id number] Voice Confirmation ID: [id number] DOCUMENT ID: [id number] LEONOR WELLS MD at 0952 CC: DANIELLE BERRY [id number] DICTATION DATE: 10/11/18 1427 MALT SPECIFICATIONS CONTROL ASSISTANT: 10/12/18 0544 [facility] CLI 10/10/18 [address] [place] [address]
== END | disposition home or self-care (01) ==
LOC: D.HCCARDIO 08:57
PROVIDERS: ATTEND Internal Medicine Interventional Cardiology
DX: I25.110 Atherosclerotic heart disease of native coronary artery with unstable angina pectoris (principal); R06.02 Shortness of breath; I10 Essential (primary) hypertension

== ENCOUNTER 2019-12-17 18:18 | Inpatient (IN) | payer BC ==
[~2019-12-17] VITALS: Ht 180.3 cm; Wt 118.2 kg
--- NOTE | 2019-12-17 19:43 | NUR ---
PATIENT DIRECT ADMIT, TESTED POSITIVE FOR COVID AT DOCTORS OFFICE. RECEIVED PATIENT TO ROOM 2139, AMBULATORY. PATIENT IS AAOX4, SITTING IN CHAIR. NO S/S OF DISTRESS OBSERVED, RR EVEN AND UNLABORED ON ROOM AIR WITH SOME DYSPNEA ON EXERTION. PATIENT REQUESTED SANDWICH TRAY AND ICE WATER, PROVIDED. PATIENT DENIES FURTHER NEEDS AT THIS TIME. MED REC, ADULT HX, SRS, FPOC, QUICK START COMPLETED. COVID 19 PRECAUTIONS INITIATED. WILL CTM.
[2019-12-17 20:00] VITALS: BP 131/42
--- NOTE | 2019-12-17 20:57 | NUR ---
PATIENTS SON CALLED TO MAKE SURE HE IS BEING TAKEN OF AND THE THE PATIENT STATED TO HIM THAT IS HE COLD AND HASN'T RECEIVED OXYGEN VIA NC YET NOR HAS HE STARTED RECEIVING IV MEDICATION. ASSURED HIM THAT THE PATIENTS IV MEDICATIONS THAT ARE DUE @ 2100 WILL BE STARTED SOON A PIV IS OBTAINED AND THAT HIS O2 SATS AT THIS MOMENT ARE 95% ON ROOM AIR AND I WILL BE BRINGING IN OXYGEN TUBING WELL RESPIRATORY THERAPY WILL BE IN TO SEE HIM SHORTLY. ALSO HE IS RUNNING A LOW GRADE TEMP OF 100.7 AT THIS TIME AND AVOID ACCESSIVE HEAT AND BLANKETS AT THIS TIME IS ADVISED. FAMILY MEMBER STATED UNDERSTANDING.
[2019-12-18] VITALS (7 sets, daily range): BP systolic 122–152; BP diastolic 42–95; Ht 180.3 cm; Wt 118.2 kg
--- NOTE | 2019-12-18 03:10 | NUR ---
I have reviewed this patient and I concur with the Shift Assessment completed by the Licensed Practical Nurse today this shift.
[2019-12-18 06:54] LABS: BASOPHILS 0 % (0-2); EOSINOPHILS 0 % (0-7); HEMATOCRIT 43.6 % (42.0-54.0); HEMOGLOBIN 14.2 g/dL (13.5-17.5); IMMATURE GRANULOCYTES 0.3 % (0-5); LYMPHOCYTES 27.6 % (15-50); MCHC 32.6 g/dL (31.0-37.0); MEAN PLATELET VOLUME 10.7 fL (7.4-10.4); MONOCYTES 2.4 % (2-11); NEUTROPHILS 69.7 % (40-80); PLATELET COUNT 191 10x3/uL (130-400); RBC 4.74 10x6/uL (4.20-6.10); RDW 13.1 % (11.5-14.5); WBC 3.8 10x3/uL (4.8-10.8)
[2019-12-18 07:04] LABS: APTT 26.4 SECONDS (22.8-39.4); INR 0.96 (0.85-1.17); PROTIME 12.7 SECONDS (11.6-15.0)
--- NOTE | 2019-12-18 07:16 | NUR ---
Lying in bed w/eyes closed, 02 in progress/order, snorring--no distress noted.
[2019-12-18 07:27] LABS: ANION GAP 13.8 mmol/L (8-16); CALCIUM 8.7 mg/dL (8.5-10.1); CARBON DIOXIDE 27.2 mmol/L (21.0-32.0); CREATININE - SERUM 1.2 mg/dL (0.6-1.3); MAGNESIUM - SERUM 2.1 mg/dL (1.8-2.4); PHOSPHOROUS 3.6 mg/dL (2.5-4.9)
--- NOTE | 2019-12-18 16:30 | NUR ---
0956--WRAPPED IV SITE AND ASSISTED PT UP TO SHOWER--CHANGED PT'S LINENS AND GOWN--PULL-UPS JEN TO ROOM/REQUEST--THEN ASSISTED PT BACK TO SIDE OF BED, SOB W/EXERCERTION NOTED--APPLIED PT'S 02 BREAKFAST SERVED, NO FURTHER NEEDS VOICED. 1130-VS WNL--SPOKE TO GIORGIO AND REQUESTED PT'S HOME MEDS BE ORDERED-GIORGIO STATES SHE WILL GET THEM ORDERED FOR THE PT. 1710-PT REFUSES MORPHINE FOR C/O SPASMS AND PAIN--VERBALLY EXPLAINED THAT IS ALL THATS ORDERED FOR PAIN, PT STATES "IT'S OK, I DON'T WANT THAT." 9550--LYING IN BED RESTING COMFORTABLY DENIES ANY NEEDS.
--- NOTE | 2019-12-18 16:41 | MORECARE ---
CASE MANAGEMENT DISCHARGE SUMMARY PATIENT: ELISEO PENA KAT UNIT: [id number] ADM DATE: 12/17/19 AGE: 54 : 65 SEX: M ROOM/BED: D.3054 AUTHOR: HOWARD BOOTH PHYSICIAN: REFERRING PHYSICIAN: CARSON CURRAN MD DATE OF SERVICE: 12/18/19 Discharge Plan Patient Name: ELISEO PENA Facility: [facility]:[place] : 1965 Planned Disposition: Home Anticipated Discharge Date: Discharge Date: Expected LOS: Initial Reviewer: [email or web address] Initial Review Date: 12/17/2019 Generated: 12/18/19 5:40 pm Comments DCP- Discharge Planning Updated by [email or web address]: Ariana Redding on 12/18/19 3:[address] Patient Name: ELISEO PENA Admission Status: Elective Accout number: [id number] Admission Date: 12-17-2019 : 1965 Admission Diagnosis:PNEUMONIA, UNSPECIFIED ORGANISM Attending: CARSON ZACARIAS Current LOS: 1 Anticipated DC Date: Planned Disposition: Home Primary Insurance: [employer] [facility] Discharge Planning Comments: CM met with patient to complete initial dc planning assessment. CM educated patient on the CM role and verbal consent given by patient to complete assessment. CM verified patient's address, phone number, and emergency contact phone numbers. Patient lives at home with his . At discharge patient plans to return home and feels this is a safe discharge. CM discussed availability of home health, rehab services, and medical equipment. Patient denied known discharge needs at this time. The patient is on oxygen and may require a walk test for home and portable oxygen. CHRISTOPHER verbalized for [facility] if home oxygen is needed. Transportation provider at discharge will be himself. Pt states he drove his to the hospital when she was admitted then drove home. The next day he went to his PCP who states he needed to be admitted so he drove himself back to the hospital. CM will continue to follow and will assist as needed with dc plans/needs. Steel Grinder: Ariana Redding DCPIA - Discharge Planning Initial Assessment Updated by [email or web address]: Ariana Redding on 12/18/19 4:38 pm * Is the patient Alert and Oriented? Yes * How many steps to enter\exit or inside your home? 0/0 * PCP gay * Pharmacy [facility] * Preadmission Environment Home with Family * ADLs Independent * Equipment None * Verbal permission to speak to the caregivers and representatives has been obtained from the patient. Yes * Community resources currently utilized None * Additional services required to return to the preadmission environment? Yes * Can the patient safely return to the preadmission environment? Yes * Has this patient been hospitalized within the prior 30 days at any hospital? No Coverage Notice Reviewer: [id number] Ashley Redding Notice Issued Date-Time: 12/18/2019 12:30 Notice Type: Patient Choice Letter Notice Delivered To: Patient Relationship to Patient: Self Harness Cleaner Name: Delivery Method: PHONE - Phone Renetta Days: Prior Verbal Notification: Yes Recipient Understood Notice: Yes Recipient Signature: Med Rec Note Co-signed by Attending: Coverage Notice Comment: christopher verbalized for [employer] for oxygen if needed Patient Name: ELISEO PENA Page [id number] at 1641 All edits/amendments must be made on the electronic document DICTATION DATE: 12/18/19 1640 AGENTS' RECORDS CLERK: RENEE 12/18/19 1640 RPT#: [id number] DC DATE: STATUS: ADM IN [facility] [address] [place] [address] END OF REPORT
--- NOTE | 2019-12-18 17:11 | NUR ---
FRESH FROZEN PLASMA CHECKED/2 DIFFERENT NURSES AT PT'S BEDSIDE, THEN STARTED TO PT'S LEFT WRIST 20GA IV @ 125CC/HR, PT TOLERATING WELL W/O DIFFICULTY.
[2019-12-19] VITALS: BP 146/79
[2019-12-19 04:00] VITALS: BP 135/79
[2019-12-19 05:05] LABS: BASOPHILS 0 % (0-2); EOSINOPHILS 0.2 % (0-7); HEMATOCRIT 38.2 % (42.0-54.0); HEMOGLOBIN 12.6 g/dL (13.5-17.5); IMMATURE GRANULOCYTES 0.3 % (0-5); LYMPHOCYTES 27.2 % (15-50); MCH 29.9 pg (26.0-34.0); MCV 90.5 fL (80.0-100.0); MEAN PLATELET VOLUME 10.3 fL (7.4-10.4); MONOCYTES 5.4 % (2-11); NEUTROPHILS 66.9 % (40-80); PLATELET COUNT 190 10x3/uL (130-400); RBC 4.22 10x6/uL (4.20-6.10); RDW 13.1 % (11.5-14.5)
[2019-12-19 05:13] LABS: WBC 6.4 10x3/uL (4.8-10.8)
[2019-12-19 05:22] LABS: CALCIUM 8.2 mg/dL (8.5-10.1); CARBON DIOXIDE 27.1 mmol/L (21.0-32.0); CHLORIDE - SERUM 102 mmol/L (98-107); MAGNESIUM - SERUM 1.9 mg/dL (1.8-2.4); PHOSPHOROUS 3.5 mg/dL (2.5-4.9); SODIUM 137 mmol/L (136-145); UREA NITROGEN 21 mg/dL (7-18); eGFR NON AFRICAN AMERICAN 83 mL/min (90-120)
[2019-12-19 05:40] LABS: CALC OSMOLALITY 277 mosm/kg (275-300); GLUCOSE 123 mg/dL (74-106); POTASSIUM - SERUM 3.8 mmol/L (3.5-5.1)
--- NOTE | 2019-12-19 06:52 | NUR ---
PT WITH A BLOOD SUGAR OF 123.NO COVERAGE NEEDED.
--- NOTE | 2019-12-19 06:58 | NUR ---
REPORT GIVEN.SAFETY MEASURES ARE IN PLACE.CALLBELL IN REACH. NO DISTRESS NOTED.
[2019-12-19 09:11] VITALS: BP 137/75
[2019-12-19 11:39] VITALS: BP 121/69
--- NOTE | 2019-12-19 14:48 | NUR ---
IV TO LEFT WRIST INFILTRATED--20GA CATH INTACT REMOVED AT THIS TIME--PT TOLERATED ALL WELL. ATTEMPTED RESTART X'S 2 W/O SUCCESS--WILL ASK ANOTHER NURSE TO TRY.
[2019-12-19 15:29] LABS: ALT (SGPT) 42 U/L (10-68)
--- NOTE | 2019-12-19 16:14 | NUR ---
0710-COFFEE AND ICE WATER BROUGHT TO ROOM/REQUEST, DENIES ANY FURTHER NEEDS. 0910-ALL AM PO MEDS ADMINISTERED/ORDER, PT TOLERATED ALL WELL. 1110-SITTING UP IN BED W/[address]-DENIES ANY NEEDS. 1500--AWAITING IV SITE, DENIES ANY FURTHER NEEDS.
--- NOTE | 2019-12-19 16:29 | NUR ---
1530-TEJA/LANIE TRIED FOR IV ACCESS W/O SUCCESS--HEAD HOUSEKEEPER CONTACTED--YODIT STATES SHE WILL FIND SOMEONE ELSE TO TRY FOR IV ACCESS.
--- NOTE | 2019-12-19 19:39 | NUR ---
SONIA FROM ER HERE TO PLACE IV. 20G TO RIGHT FOREARM X1 ATTEMPT.
[2019-12-19 21:41] VITALS: BP 118/67
--- NOTE | 2019-12-20 01:00 | NUR ---
CHECKED ON PT, RED HIVES NOTED ON BILATERAL UPPER EXTREMITIES. DOXYCYCLINE IMMEDIATELY STOPPED, PIV FLUSHED. SPOKE WITH NANCY BOTELLO APN, RECEIVED ORDERS FOR IV BENADRYL 25 MG AND IV PEPCID 20 MG ONE TIME NOW. SPOKE WITH DR HANDLEY, RECEIVED ORDERS TO CONT WITH POC AND TO ADMINISTER CCP, ORDERED.
[2019-12-20 01:20] VITALS: BP 133/65
--- NOTE | 2019-12-20 02:35 | NUR ---
FFP/CCP STARTED PER ORDER. PT TOLERATING WELL. WILL CPOC.
--- NOTE | 2019-12-20 03:40 | NUR ---
PT RESTING QUIETLY, NO FURTHER ADVERSE REACTIONS OBSERVED. CALL LIGHT IN REACH, NO DISTRESS NOTED. WILL CPOC.
[2019-12-20 05:14] VITALS: BP 136/78
[2019-12-20 06:00] LABS: BASOPHILS 0 % (0-2); EOSINOPHILS 0.2 % (0-7); IMMATURE GRANULOCYTES 0.2 % (0-5); MCH 30.4 pg (26.0-34.0); MCHC 33.3 g/dL (31.0-37.0); MCV 91.3 fL (80.0-100.0); MEAN PLATELET VOLUME 10.2 fL (7.4-10.4); MONOCYTES 3.4 % (2-11); NEUTROPHILS 83.2 % (40-80); PLATELET COUNT 188 10x3/uL (130-400); RBC 4.27 10x6/uL (4.20-6.10); RDW 13.3 % (11.5-14.5); WBC 6.5 10x3/uL (4.8-10.8)
[2019-12-20 06:45] LABS: ALT (SGPT) 42 U/L (10-68); CALC OSMOLALITY 279 mosm/kg (275-300); CALCIUM 8.3 mg/dL (8.5-10.1); CARBON DIOXIDE 26.6 mmol/L (21.0-32.0); CHLORIDE - SERUM 103 mmol/L (98-107); CREATININE - SERUM 0.9 mg/dL (0.6-1.3); GLUCOSE 180 mg/dL (74-106); MAGNESIUM - SERUM 2.1 mg/dL (1.8-2.4); PHOSPHOROUS 2.4 mg/dL (2.5-4.9); POTASSIUM - SERUM 4.4 mmol/L (3.5-5.1); SODIUM 136 mmol/L (136-145); UREA NITROGEN 20 mg/dL (7-18); eGFR NON AFRICAN AMERICAN > 90 mL/min (90-120)
--- NOTE | 2019-12-20 07:30 | NUR ---
LYING IN BED W/EYES CLOSED, 02@2L/NC IN PROGRESS. NO DISTRESS NOTED.
[2019-12-20 09:33] VITALS: BP 121/79
[2019-12-20 10:57] VITALS: BP 100/52
[2019-12-20 15:58] VITALS: BP 120/76
--- NOTE | 2019-12-20 16:02 | NUR ---
0900-ASSISTED W/TAKING A SHOWER AND LINEN CHANGE, BREAKFAST SERVED, ALL AM MEDS GIVEN-PT TOLERATED ALL WELL. NO FURTHER NEEDS VOICED. 1100-DENIES ANY NEEDS 1300-DOING WELL, DENIES ANY NEEDS 1500-NO CHANGES TO REPORT
--- NOTE | 2019-12-20 17:58 | NUR ---
URINE SPECIMEN COLLECTED, SUPPER SERVED, PT DENIES ANY FURTHER NEEDS.
[2019-12-20 19:36] LABS: BILIRUBIN NEGATIVE (NEGATIVE); KETONE NEGATIVE (NEGATIVE); NITRITE NEGATIVE (NEGATIVE); UROBILINOGEN NORMAL mg/dL (< 2)
[2019-12-20 20:18] VITALS: BP 126/64
[2019-12-21 04:45] VITALS: BP 127/69
[2019-12-21 06:53] LABS: BASOPHILS 0 % (0-2); EOSINOPHILS 0.2 % (0-7); HEMATOCRIT 40.7 % (42.0-54.0); HEMOGLOBIN 13.4 g/dL (13.5-17.5); IMMATURE GRANULOCYTES 0.2 % (0-5); LYMPHOCYTES 42.5 % (15-50); MCH 30.2 pg (26.0-34.0); MCHC 32.9 g/dL (31.0-37.0); MCV 91.7 fL (80.0-100.0); MEAN PLATELET VOLUME 10.3 fL (7.4-10.4); MONOCYTES 5.5 % (2-11); NEUTROPHILS 51.6 % (40-80); PLATELET COUNT 217 10x3/uL (130-400); RBC 4.44 10x6/uL (4.20-6.10)
[2019-12-21 07:02] LABS: ALT (SGPT) 44 U/L (10-68); CALC OSMOLALITY 282 mosm/kg (275-300); CALCIUM 8.6 mg/dL (8.5-10.1); CARBON DIOXIDE 27.6 mmol/L (21.0-32.0); CHLORIDE - SERUM 106 mmol/L (98-107); CREATININE - SERUM 0.9 mg/dL (0.6-1.3); MAGNESIUM - SERUM 2.2 mg/dL (1.8-2.4); POTASSIUM - SERUM 3.9 mmol/L (3.5-5.1); SODIUM 140 mmol/L (136-145); UREA NITROGEN 17 mg/dL (7-18); eGFR NON AFRICAN AMERICAN > 90 mL/min (90-120)
[2019-12-21 07:06] LABS: GLUCOSE 132 mg/dL (74-106); PHOSPHOROUS 3.6 mg/dL (2.5-4.9)
--- NOTE | 2019-12-21 07:20 | NUR ---
RECIEVE REPORT. ALERT AND ORIENTED X 4. SITTING UP IN BED. SINUS RYTHM ON TELEMETRY. DENIES ANY NEEDS. NO SIGNS OF DISTRESS. CONTINUE PLAN OF CARE AND SAFETY PRECAUTIONS.
[2019-12-21 08:52] VITALS: BP 119/73
[2019-12-21 12:05] VITALS: BP 115/59
[2019-12-21 17:01] VITALS: BP 142/70
[2019-12-21 21:30] VITALS: BP 128/63
[2019-12-22 01:30] VITALS: BP 124/62
[2019-12-22 04:35] VITALS: BP 186/90
--- NOTE | 2019-12-22 05:51 | NUR ---
PT VOICES NO COMPLAINTS OR CONCERNS DURING THE NIGHT. TELEMETRY REMOVED PER PT REQUEST. NO NEEDS EXPRESSED. WILL CPOC.
--- NOTE | 2019-12-22 07:20 | NUR ---
RECIEVE REPORT. ALERT AND ORIENTED X4. SITTING UP IN BED WATCHING TV. NO SIGNS OF DISTRESS. CONTINUE PLAN OF CARE AND SAFETY PRECAUTIONS.
[2019-12-22 08:02] VITALS: BP 136/75
[2019-12-22] MEDS ORDERED: DECADRON4 MG PO (11:11)
--- NOTE | 2019-12-22 12:27 | MORECARE ---
CASE MANAGEMENT DISCHARGE SUMMARY PATIENT: ELISEO PENA KAT UNIT: [id number] ADM DATE: 12/17/19 AGE: 54 : 65 SEX: M ROOM/BED: D.2139 AUTHOR: HOWARD BOOTH PHYSICIAN: REFERRING PHYSICIAN: CARSON CURRAN MD DATE OF SERVICE: 12/22/19 Discharge Plan Patient Name: ELISEO PENA Facility: [facility]:[place] : 1965 Planned Disposition: Home Anticipated Discharge Date: Discharge Date: Expected LOS: Initial Reviewer: [id number] Initial Review Date: 12/17/2019 Generated: 12/22/19 1:27 pm Comments DCP- Discharge Planning Updated by [email or web address]: Ariana Redding on 12/22/19 11:[address] Patient Name: ELISEO PENA Encounter No: [id number] : 1965 Primary Insurance: [employer] [place] PPO Anticipated DC Date: Planned Disposition: Home External Planned Provider: : DCP follow-up note: CM spoke to patient via phone about discharge. Pt states he has not been short of breath while walking. A walk test was performed and pt did not require home and portable oxygen. Pt 02 sat maintained about 93% on room air while ambulating. Cm spoke to pt about home [facility] or other DME services. Pt declined additional services. No changes to plan. The patient plans to transport himself home. Case management will follow and assist as needed. Ariana Redding DCP- Discharge Planning Updated by [id number]: Ariana Redding on 12/18/19 3:[address] Patient Name: ELISEO PENA Admission Status: Elective Accout number: [id number] Admission Date: 12-17-2019 : 1965 Admission Diagnosis:PNEUMONIA, UNSPECIFIED ORGANISM Attending: CARSON ZACARIAS Current LOS: 1 Anticipated DC Date: Planned Disposition: Home Primary Insurance: [employer] [place] PPO Discharge Planning Comments: CM met with patient to complete initial dc planning assessment. CM educated patient on the CM role and verbal consent given by patient to complete assessment. CM verified patient's address, phone number, and emergency contact phone numbers. Patient lives at home with his . At discharge patient plans to return home and feels this is a safe discharge. CM discussed availability of home health, rehab services, and medical equipment. Patient denied known discharge needs at this time. The patient is on oxygen and may require a walk test for home and portable oxygen. CHRISTOPHER verbalized for [facility] if home oxygen is needed. Transportation provider at discharge will be himself. Pt states he drove his to the hospital when she was admitted then drove home. The next day he went to his PCP who states he needed to be admitted so he drove himself back to the hospital. CM will continue to follow and will assist as needed with dc plans/needs. Shipwright Apprentice: Ariana Redding DCPIA - Discharge Planning Initial Assessment Updated by [email or web address]: Ariana Redding on 12/18/19 4:38 pm * Is the patient Alert and Oriented? Yes * How many steps to enter\exit or inside your home? 0/0 * PCP gay * [facility] * Preadmission Environment Home with Family * ADLs Independent * Equipment None * Verbal permission to speak to the caregivers and representatives has been obtained from the patient. Yes * Community resources currently utilized None * Additional services required to return to the preadmission environment? Yes * Can the patient safely return to the preadmission environment? Yes * Has this patient been hospitalized within the prior 30 days at any hospital? No Coverage Notice Reviewer: [email or web address] Ashley Redding Notice Issued Date-Time: 12/18/2019 12:30 Notice Type: Patient Choice Letter Notice Delivered To: Patient Relationship to Patient: Self Molded Parts Inspector Name: Delivery Method: PHONE - Phone Renetta Days: Prior Verbal Notification: Yes Recipient Understood Notice: Yes Recipient Signature: Med Rec Note Co-signed by Attending: Coverage Notice Comment: christopher verbalized for [facility] for oxygen if needed Reviewer: [id number] Ashley Redding Notice Issued Date-Time: 12/22/2019 12:00 Notice Type: Patient Choice Letter Notice Delivered To: Patient Relationship to Patient: Self Molded Parts Inspector Name: Delivery Method: PHONE - Phone Renetta Days: Prior Verbal Notification: Yes Recipient Understood Notice: Yes Recipient Signature: Med Rec Note Co-signed by Attending: Coverage Notice Comment: pt declined DME, or HH Last DP export: 12/18/19 3:41 p Patient Name: ELISEO PENA Page [id number] at 1227 All edits/amendments must be made on the electronic document DICTATION DATE: 12/22/191226 CLOTH BOLT BANDER: RENEE 12/22/191226 RPT#: [id number] DC DATE: STATUS: ADM IN [facility] [address] [place] [address] END OF REPORT
[2019-12-22 13:14] LABS: BASOPHILS 0.1 % (0-2); EOSINOPHILS 0.4 % (0-7); HEMATOCRIT 39.3 % (42.0-54.0); HEMOGLOBIN 13.2 g/dL (13.5-17.5); IMMATURE GRANULOCYTES 0.3 % (0-5); LYMPHOCYTES 28.8 % (15-50); MCH 30.4 pg (26.0-34.0); MCHC 33.6 g/dL (31.0-37.0); MCV 90.6 fL (80.0-100.0); MEAN PLATELET VOLUME 10.1 fL (7.4-10.4); MONOCYTES 6.8 % (2-11); NEUTROPHILS 63.6 % (40-80); PLATELET COUNT 238 10x3/uL (130-400); RBC 4.34 10x6/uL (4.20-6.10)
[2019-12-22 13:16] LABS: WBC 7.8 10x3/uL (4.8-10.8)
[2019-12-22 13:17] LABS: ALT (SGPT) 49 U/L (10-68); CALC OSMOLALITY 281 mosm/kg (275-300); CALCIUM 8.5 mg/dL (8.5-10.1); CHLORIDE - SERUM 106 mmol/L (98-107); CREATININE - SERUM 0.9 mg/dL (0.6-1.3); GLUCOSE 112 mg/dL (74-106); MAGNESIUM - SERUM 2.1 mg/dL (1.8-2.4); PHOSPHOROUS 4.3 mg/dL (2.5-4.9); POTASSIUM - SERUM 4.1 mmol/L (3.5-5.1); SODIUM 139 mmol/L (136-145); UREA NITROGEN 20 mg/dL (7-18); eGFR NON AFRICAN AMERICAN > 90 mL/min (90-120)
--- NOTE | 2019-12-22 15:30 | NUR ---
ALERT AND ORIENTED X4. RESTING IN BED. DISCHARGE INSTRUCTIONS GIVEN VERBALLY AND WRITTEN. DC RT FA IV TIP INTACT. DC PAPERS UNABLE TO BE SIGNED DUE TO COVID ISOLATION. ESCORT TO TRUCK VIA WHEELCHAIR. REMAINS FREE FROM INJURY.
--- NOTE | 2019-12-23 08:41 | MORECARE ---
CASE MANAGEMENT DISCHARGE SUMMARY PATIENT: ELISEO PENA KAT UNIT: [id number] ADM DATE: 12/17/19 AGE: 54 : 65 SEX: M ROOM/BED: D.2139 AUTHOR: HOWARD BOOTH PHYSICIAN: REFERRING PHYSICIAN: CARSON CURRAN MD DATE OF SERVICE: 12/23/19 Discharge Plan Patient Name: ELISEO PENA Facility: [facility]:[place] : 1965 Planned Disposition: Home Anticipated Discharge Date: Discharge Date: 12/22/2019 Expected LOS: Initial Reviewer: [email or web address] Initial Review Date: 12/17/2019 Generated: 12/23/19 9:40 am Comments DCP- Discharge Planning Updated by [email or web address]: Ariana Redding on 12/22/19 11:[address] Patient Name: ELISEO PENA Encounter No: [id number] : 1965 Primary Insurance: [employer] [place] P[place] Anticipated DC Date: Planned Disposition: Home External Planned Provider: : DCP follow-up note: CM spoke to patient via phone about discharge. Pt states he has not been short of breath while walking. A walk test was performed and pt did not require home and portable oxygen. Pt 02 sat maintained about 93% on room air while ambulating. Cm spoke to pt about home [facility] or other DME services. Pt declined additional services. No changes to plan. The patient plans to transport himself home. Case management will follow and assist as needed. Ariana Redding DCP- Discharge Planning Updated by [id number]: Ariana Redding on 12/18/19 3:[address] Patient Name: ELISEO PENA Admission Status: Elective Accout number: [id number] Admission Date: 12-17-2019 : 1965 Admission Diagnosis:PNEUMONIA, UNSPECIFIED ORGANISM Attending: CARSON ZACARIAS Current LOS: 1 Anticipated DC Date: Planned Disposition: Home Primary Insurance: [employer] [place] PPO Discharge Planning Comments: CM met with patient to complete initial dc planning assessment. CM educated patient on the CM role and verbal consent given by patient to complete assessment. CM verified patient's address, phone number, and emergency contact phone numbers. Patient lives at home with his . At discharge patient plans to return home and feels this is a safe discharge. CM discussed availability of home health, rehab services, and medical equipment. Patient denied known discharge needs at this time. The patient is on oxygen and may require a walk test for home and portable oxygen. CHRISTOPHER verbalized for [facility] if home oxygen is needed. Transportation provider at discharge will be himself. Pt states he drove his to the hospital when she was admitted then drove home. The next day he went to his PCP who states he needed to be admitted so he drove himself back to the hospital. CM will continue to follow and will assist as needed with dc plans/needs. Toolmaker: Ariana Redding DCPIA - Discharge Planning Initial Assessment Updated by [email or web address]: Ariana Redding on 12/18/19 4:38 pm * Is the patient Alert and Oriented? Yes * How many steps to enter\exit or inside your home? 0/0 * PCP gay * [facility] * Preadmission Environment Home with Family * ADLs Independent * Equipment None * Verbal permission to speak to the caregivers and representatives has been obtained from the patient. Yes * Community resources currently utilized None * Additional services required to return to the preadmission environment? Yes * Can the patient safely return to the preadmission environment? Yes * Has this patient been hospitalized within the prior 30 days at any hospital? No Coverage Notice Reviewer: [id number] Ashley Redding Notice Issued Date-Time: 12/18/2019 12:30 Notice Type: Patient Choice Letter Notice Delivered To: Patient Relationship to Patient: Self Chiropractic Teacher Name: Delivery Method: PHONE - Phone Renetta Days: Prior Verbal Notification: Yes Recipient Understood Notice: Yes Recipient Signature: Med Rec Note Co-signed by Attending: Coverage Notice Comment: christopher verbalized for [facility] for oxygen if needed Reviewer: [email or web address] Ashley Redding Notice Issued Date-Time: 12/22/2019 12:00 Notice Type: Patient Choice Letter Notice Delivered To: Patient Relationship to Patient: Self Chiropractic Teacher Name: Delivery Method: PHONE - Phone Renetta Days: Prior Verbal Notification: Yes Recipient Understood Notice: Yes Recipient Signature: Med Rec Note Co-signed by Attending: Coverage Notice Comment: pt declined DME, or HH Last DP export: 10/5/20 11:27 a Patient Name: ELISEO PENA Page [id number] at 0841 All edits/amendments must be made on the electronic document DICTATION DATE: 12/23/19839 MAIL HANDLER EQUIPMENT OPERATOR: RENEE 12/23/19839 RPT#: [id number] DC DATE:12/22/19 STATUS: DIS IN [facility] [address] [place] [address] END OF REPORT
== END 2019-12-22 15:42 | disposition home or self-care (01) | DRG 177 ==
LOC: D.M2 18:18
PROVIDERS: Internal Medicine Pulmonary Disease; ADMIT Family Medicine Adult Medicine; ATTEND Family Medicine Adult Medicine
PROC: XW033E5 Introduction of Remdesivir Anti-infective into Peripheral Vein, Percutaneous Approach, New Technology Group 5 (ICD-10-PCS; principal; 2019-12-18)
DX: U07.1 COVID-19 (principal); J12.89 Other viral pneumonia; J96.01 Acute respiratory failure with hypoxia; I25.10 Atherosclerotic heart disease of native coronary artery without angina pectoris; E78.5 Hyperlipidemia, unspecified; I10 Essential (primary) hypertension; G47.33 Obstructive sleep apnea (adult) (pediatric); G25.81 Restless legs syndrome